=== PATIENT | male | born 1995 | race American Indian/Alaskan Native ===

== ENCOUNTER 2021-06-18 16:53 | Emergency (ER) | payer SELFPAY ==
--- NOTE | 2021-06-18 18:43 | Emergency Department Report ---
ED Lower Extremity HPI - General Chief Complaint: Extremity Problem,Nontraumatic Stated Complaint: RGHT KNEE PAIN Time Seen by Provider: 06/18/21 17:59 Source: patient Mode of arrival: Ambulatory Limitations: No Limitations - History of Present Illness Initial Comments: Patient is a 25-year-old male presents emergency room complaints of right knee pain that exacerbated 2 days ago. Patient states he was walking and he slipped and he caught himself and did not fall to the ground but began feeling right lateral knee pain. He states he has had this knee pain for several years but it exacerbated 2 days ago when he had the slip. He denies any numbness or weakness. He is ambulatory. No past medical history. No allergies medications. - Related Data Previous Rx's Medication Instructions Recorded Last Taken Type Naproxen 375 mg PO BID PRN #14 tab 06/18/21 Unknown Rx Allergies Allergy/AdvReac Type Severity Reaction Status Date / Time No Known Allergies Allergy Verified 06/18/21 17:59 ED Review of Systems ROS: Stated complaint: RGHT KNEE PAIN Other details as noted in HPI Comment: All other systems reviewed and negative ED Past Medical Hx - Past Medical History Previous Medical History?: No - Surgical History Past Surgical History?: No - Medications Home Medications: Home Medications Medication Instructions Recorded Confirmed Last Taken Type Naproxen 375 mg PO BID PRN #14 tab 06/18/21 Unknown Rx ED Physical Exam - General Limitations: No Limitations General appearance: alert, in no apparent distress - Head Head exam: Present: atraumatic, normocephalic - Eye Eye exam: Present: normal appearance - ENT ENT exam: Present: mucous membranes moist - Back Exam Back exam: Present: other (right lateral knee ttp, no deformity, no edema, FROM, no joint laxity, neurovascularly intact) - Neurological Exam Neurological exam: Present: alert, oriented X3 - Psychiatric Psychiatric exam: Present: normal affect, normal mood - Skin Skin exam: Present: warm, dry, intact ED Course Vital Signs 06/18/21 06/18/21 17:56 19:06 Temperature 98.7 F 97.5 F L Pulse Rate 82 78 Respiratory 16 16 Rate Blood Pressure 118/74 114/63 [Left] O2 Sat by Pulse 100 100 Oximetry ED Lower Extremity MDM - Radiology Data Radiology results: report reviewed Ordering Physician: BRIANNE SHORE Date of Service: 06/18/21 Procedure(s): XR knee 3V RT Accession Number(s): [id number] cc: BRIANNE SHORE Fluoro Time In Minutes: RIGHT KNEE 3 VIEW(S) INDICATION / CLINICAL INFORMATION: right lateral knee pain after slip COMPARISON: None available. FINDINGS: BONES / JOINT(S): No acute fracture or subluxation. No significant arthritis. SOFT TISSUES: No significant abnormality. ADDITIONAL FINDINGS: None. Signer Name: Alexis Robison MD Signed: 06/18/2021 6:39 PM Workstation Name: [id number] Transcribed By: SS Dictated By: Alexis Robison MD Electronically Authenticated By: Alexis Robison MD Signed Date/Time: 06/18/211838 DD/ 37 TD/TT: - Medical Decision Making Patient is a 25-year-old male presents emergency room complaints of right knee pain that exacerbated 2 days ago. Patient states he was walking and he slipped and he caught himself and did not fall to the ground but began feeling right lateral knee pain. He states he has had this knee pain for several years but it exacerbated 2 days ago when he had the slip. He denies any numbness or weakness. He is ambulatory. No past medical history. No allergies medications. vitals are normal. on exam: right lateral knee ttp, no deformity, no edema, FROM, no joint laxity, neurovascularly intact. XR right knee: BONES / JOINT(S): No acute fracture or subluxation. No significant arthritis. SOFT TISSUES: No significant abnormality. ADDITIONAL FINDINGS: None. Az wrap placed by billet checker and patient remained neurovascularly intact. Symptoms and examination likely consistent with knee sprain. Advised patient Please take medication as prescribed as needed. May use ice 15 minutes at a time, rest, elevation of the leg. Do not wear Az bandage too tightly do not wear at night while sleeping. Follow-up with orthopedic doctor if symptoms or not improving. Return to emergency room for any new or worsening symptoms. Critical care attestation.: If time is entered above; I have spent that time in minutes in the direct care of this critically ill patient, excluding procedure time. ED Disposition Clinical Impression: Right knee pain Qualifiers: Chronicity: acute Qualified Code(s): M25.561 - Pain in right knee Right knee sprain Qualifiers: Encounter type: initial encounter Involved ligament of knee: unspecified ligament Qualified Code(s): S83.91XA - Sprain of unspecified site of right knee, initial encounter Disposition: HOME / SELF CARE / HOMELESS Is pt being admited?: No Does the pt Need Aspirin: No Condition: Stable Instructions: Knee Sprain, Adult, [id number] Additional Instructions: Please take medication as prescribed as needed. May use ice 15 minutes at a time, rest, elevation of the leg. Do not wear Az bandage too tightly do not wear at night while sleeping. Follow-up with orthopedic doctor if symptoms or not improving. Return to emergency room for any new or worsening symptoms. Prescriptions: Naproxen 375 mg PO BID PRN #14 tab PRN Reason: pain Referrals: TARUN MCCARTY MD [Staff Physician] - 3-5 Days Time of Disposition: 18:47 Print Language: MAORI
[2021-06-18 19:09] VITALS: BP 114/63
== END 2021-06-18 19:06 | disposition home or self-care (01) ==
LOC: ED 16:53
DX: S83.91XA Sprain of unspecified site of right knee, initial encounter (principal); W18.49XA Other slipping, tripping and stumbling without falling, initial encounter; Y93.89 Activity, other specified; Y92.89 Other specified places as the place of occurrence of the external cause; Y99.8 Other external cause status
CPT/HCPCS: 99283